=== PATIENT | female | born 1980 | race American Indian/Alaskan Native ===

== ENCOUNTER 2017-01-13 14:51 | Outpatient (CLI) | payer BC ==
--- NOTE | 2017-01-13 15:37 | XRay Report ---
Right thumb: Pain. Routine views of the first digit demonstrates normal bone mineralization and contours. The articular surfaces are smooth and the joint spaces are preserved and aligned. No soft tissue swelling identified. AP view of the whole hand is also unremarkable. Impression: Normal exam. LEFT HAND: Pain. The bony architecture is intact. Bony alignment is normal. No soft tissue abnormalities are seen. The joint spaces appear preserved. IMPRESSION: Normal left hand.
== END 2017-01-13 14:52 | disposition home or self-care (01) ==
LOC: SPVIMAG 14:51
PROVIDERS: ATTEND Orthopaedic Surgery
DX: M79.642 Pain in left hand (principal); M79.644 Pain in right finger(s)